=== PATIENT | female | born 1995 | race Two or more races ===

== ENCOUNTER 2022-07-30 19:42 | Emergency (ER) | payer OTHER ==
[~2022-07-30] VITALS: Ht 170.2 cm; Wt 97.0 kg
[2022-07-30 23:01] VITALS: BP 138/78
[2022-07-30] MEDS ORDERED: CYCL-837 PO (23:13)
[2022-07-30] MEDS ORDERED: ACET-1158 PO (23:13)
== END 2022-07-30 23:34 | disposition home or self-care (01) ==
LOC: ER 19:47 → EDSEX 19:47 → ER 23:34
DX: S16.1XXA Strain of muscle, fascia and tendon at neck level, initial encounter (principal); S80.02XA Contusion of left knee, initial encounter; J45.909 Unspecified asthma, uncomplicated; V49.59XA Passenger injured in collision with other motor vehicles in traffic accident, initial encounter; Y93.89 Activity, other specified; Y92.411 Interstate highway as the place of occurrence of the external cause; Y99.8 Other external cause status
CPT/HCPCS: 81025